=== PATIENT | female | born 1945 | race African-American/Black ===

== ENCOUNTER 2017-01-18 08:49 | Outpatient (CLI) | payer MEDICARE ==
--- NOTE | 2017-01-18 11:03 | Mammography Report ---
BILATERAL MAMMOGRAM: FINDINGS: The breasts are almost entirely fat (<25% glandular). No mass, distortion, suspicious calcification, or skin change is seen. No significant change compared to prior exams dating back to 2015. CAD was utilized. IMPRESSION: Negative mammogram. There is no mammographic evidence of malignancy. RECOMMENDATION: Follow-up per ACS guidelines. BI-RADS CATEGORY: 1 = Negative ACR BI-RADS MAMMOGRAPHIC CODES: 0 = Needs additional imaging evaluation; 1 = Negative; 2 = Benign; 3 = Probably benign; 4 = Suspicious; 5 = Malignant; 6 = Known biopsy-proven malignancy COMMENT: 1. Dense breast tissue, i.e., adenosis, fibrocystic changes, etc., may obscure an underlying neoplasm. 2. Approximately 10% of cancers are not detected with mammography. 3. A negative mammography report should not delay biopsy if a clinically suspicious mass is present. COMMENT: Patient follow-up letters are generated in [employer].
== END 2017-01-18 08:50 | disposition home or self-care (01) ==
LOC: MAMMO 08:49
PROVIDERS: ATTEND Family Medicine
DX: Z12.31 Encounter for screening mammogram for malignant neoplasm of breast (principal)
CPT/HCPCS: 77067; G0202

== ENCOUNTER 2019-01-23 09:37 | Outpatient (CLI) | payer MEDICARE ==
--- NOTE | 2019-01-24 12:45 | Mammography Report ---
DIGITAL SCREENING MAMMOGRAM WITH CAD, 01/23/2019 INDICATION: Routine screening mammography. TECHNIQUE: Digital bilateral 2D mammography was obtained in the craniocaudal and mediolateral obliq ue projections. This examination was interpreted with the benefit of Computer-Aided Detection analysi s. COMPARISON: 01/19/2018 and 01/18/2017 FINDINGS: Breast Density: There are scattered areas of fibroglandular density. Right asymmetries on both views require additional imaging. No architectural distortion or suspicious calcifications of the right breast. There is no evidence of dominant mass, suspicious calcifications or architectural distortion in the left breast. IMPRESSION: Right asymmetries requiring additional imaging. Recommend recall for right lateral medial and spot magnification MLO and CC views and right breast ultrasound if needed. Follow up recommendation: Routine yearly Category 0: Incomplete. Needs additional imaging evaluation and/or prior mammograms for comparison. A "normal" or negative report should not discourage follow up or biopsy of a clinically significant f inding. A written summary of these findings will be mailed to the patient. The patient will be entered into a mammography reporting system which will generate a reminder letter for the patient's next appointmen t at the appropriate interval. The [employer] recommends yearly mammograms starting at age 40 and continuing as l judy as a woman is in good health. Breast MRI is recommended for women with an approximate 20-25% or greater lifetime risk of breast cancer, including women with a strong family history of breast or ova patience cancer or who have been treated for Hodgkin's disease. Signer Name: Axel Kwan MD Signed: 01/24/2019 12:40 PM Workstation Name: [id number]
== END 2019-01-23 09:38 | disposition home or self-care (01) ==
LOC: MAMMO 09:37
PROVIDERS: ATTEND Family Medicine
DX: Z12.31 Encounter for screening mammogram for malignant neoplasm of breast (principal); I10 Essential (primary) hypertension
CPT/HCPCS: 77067